=== PATIENT | female | born 1955 | race African-American/Black ===

== ENCOUNTER 2016-08-07 21:51 | Observation (INO) | payer MEDICARE ==
[~2016-08-07] VITALS: Ht 165.1 cm; Wt 126.0 kg
[~2016-08-07 21:51] MED LIST: CELE200 PO; ESOM0.1C PO; HYDR-2768 PO; LEXA20TA PO; MECL25 PO; METO100T9 PO; MOBI15TA PO; NORC7.5T PO; POTA-243 PO; ZOCO40TA PO
[2016-08-07 21:54] VITALS: BP 165/84; PULSE 65; RESP 16; TEMP 97.8; O2SAT 98
--- NOTE | 2016-08-07 22:02 | PD ---
Physical Exam Date Seen by Provider: Aug 07, 2016 Time Seen by Provider: 21:57 Narrative 61 YOBF C/O L ARM PAIN NO INJURY. PAIN IN UPPER ARM TO THE HAND. ALSO CHRONIC L KNEE PAIN. NO CP/SOB. VSS AWAITING BED PLACEMENT Data Data Last Documented VS Vital Signs Date Time Temp Pulse Resp B/P Pulse Ox O2 Delivery O2 Flow Rate FiO2 08/07/16 21:54 97.8 65 16 165/84 98 Room Air [facility] Medical Record Reviewed: Yes Supervised Visit with SONJA: Yes Raimundo Boucher Aug 07, 2016 22:02
[2016-08-08] MEDS ORDERED: HYDR25TA5 PO (00:04)
[2016-08-08] MEDS ORDERED: MECL-62 PO (00:04)
[2016-08-08] MEDS ORDERED: CELE200C PO (00:04)
[2016-08-08] MEDS ORDERED: ZOCO40TA PO (00:04)
[2016-08-08] MEDS ORDERED: LEXA20TA PO (00:04)
[2016-08-08] MEDS ORDERED: POTA10TA8 PO (00:04)
[2016-08-08] MEDS ORDERED: METO100T9 PO (00:04)
[2016-08-08] MEDS ORDERED: ASPIRIN 81 MG CHEW TAB PO ONE (00:30)
[2016-08-08] MEDS ORDERED: CYCLOBENZAPRINE HCL 10 MG TAB PO ONE (00:30)
[2016-08-08] MEDS ORDERED: SODIUM CHLORIDE 0.9% FLUSH 10 ML FLUSH IVF PRN (00:30)
[2016-08-08] MEDS ORDERED: KETOROLAC TROMETHAMINE 30 MG/ML (IVP) VIAL IV PUSH ONE (00:30)
[2016-08-08 01:13] LABS: AUTOMATED NEUTROPHIL # 5.7 TH/MM3 (1.8-7.7); BASOPHIL # 0.1 TH/MM3 (0-0.2); EOSINOPHIL # 0.4 TH/MM3 (0-0.4); HEMATOCRIT 35.4 % (35.0-46.0); LYMPH % 23.2 % (9.0-44.0); MEAN CELL VOLUME 77.5 FL (80.0-100.0); MEAN CORPUSCULAR HEMOGLOBIN 25.5 PG (27.0-34.0); MONO % 4.8 % (0.0-8.0); PLATELET COUNT 256 TH/MM3 (150-450); RED BLOOD COUNT 4.57 MIL/MM3 (4.00-5.30); RED CELL DISTRIBUTION WIDTH 14.6 % (11.6-17.2); WHITE BLOOD COUNT 8.7 TH/MM3 (4.0-11.0)
[2016-08-08 01:21] LABS: APTT (PATIENT) 27.1 SEC (24.3-30.1); HEMO FLAGS AUTO DIFF; PROTHROMBIN TIME - PATIENT 11.2 SEC (9.8-11.6)
[2016-08-08 01:40] LABS: ALT (GPT) 24 U/L (10-53); ANION GAP 9 MEQ/L (5-15); AST (GOT) 18 U/L (15-37); BICARBONATE 29.5 MEQ/L (21.0-32.0); BLOOD UREA NITROGEN 14 MG/DL (7-18); CHLORIDE 100 MEQ/L (98-107); GLOMERULAR FILTRATION RATE 74 ML/MIN (>89); POTASSIUM 4.1 MEQ/L (3.5-5.1); SODIUM (NA) 138 MEQ/L (136-145)
[2016-08-08 01:44] LABS: ALKALINE PHOSPHATASE 139 U/L (45-117); TOTAL BILIRUBIN ADULT 0.4 MG/DL (0.2-1.0)
--- NOTE | 2016-08-08 01:54 | RADRPT ---
EXAM DATE/TIME: 08/08/2016 01:05 [facility] COMPARISON: No previous studies available for comparison. INDICATIONS : Left arm pain. MEDICAL HISTORY : None. SURGICAL HISTORY : None. ENCOUNTER: Initial ACUITY: 1 day PAIN SCORE: 5/10 LOCATION: Left shoulder FINDINGS: Multiple view examination of the left shoulder demonstrates no evidence of fracture or dislocation. The glenohumeral and acromioclavicular joints are maintained. There is normal range of motion betwee n internal and external rotation. Bony mineralization is normal. CONCLUSION: Unremarkable examination of the left shoulder. Viraj Gonzales Jr., MD on August 08, 2016 at 1:52 Board Certified Radiologist. This report was verified electronically.
--- NOTE | 2016-08-08 01:54 | RADRPT ---
EXAM DATE/TIME: 08/08/2016 01:04 [facility] COMPARISON: No previous studies available for comparison. INDICATIONS : Chest pain. MEDICAL HISTORY : None. SURGICAL HISTORY : None. ENCOUNTER: Initial ACUITY: 1 day PAIN SCORE: 5/10 LOCATION: Bilateral chest FINDINGS: PA and lateral views of the chest demonstrate the lungs to be symmetrically aerated without evidence of mass, infiltrate or effusion. The cardiomediastinal contours are unremarkable. Osseous structure s are intact. CONCLUSION: No acute disease. Viraj Gonzales Jr., MD on August 08, 2016 at 1:52 Board Certified Radiologist. This report was verified electronically.
[2016-08-08 01:55] LABS: BANDS 1 % (0-6); EOSINOPHILS 8 % (0-4); METAMYELOCYTES 1 % (0-1); NEUTROPHIL # MANUAL DIFF 5.2 TH/MM3 (1.8-7.7); POLYS (SEG NEUTROPHILS) 58 % (16-70); SCAN/DIFF FINAL DIFF MANUAL; WBC DIFF SAMPLE 100
[2016-08-08 01:56] LABS: PLATELET ESTIMATE SMEAR NORMAL (NORMAL); PLATELET MORPHOLOGY NORMAL (NORMAL); TOXIC VACUOLATION PRESENT (NONE SEEN)
--- NOTE | 2016-08-08 02:40 | PD ---
HPI Chief Complaint: Pain: Acute or Chronic Time Seen by Provider: 00:04 Travel History International Travel<30 days: No Contact w/Intl Traveler<30days: No Traveled to known affect area: No History of Present Illness HPI Patient is a 61 year old female who comes in complaining of left sided chest pain radiating down her left arm. She says the pain is on the left side of her chest and in her shoulder. She reports a tingling sensation in her fingers. She says she was sitting at home when the pain started about an hour prior to arrival. She says she has had some SOB and some nausea. She denies any vomiting. PFSH Past Medical History Arthritis: Yes Asthma: No Autoimmune Disease: No Blood Disorders: No Anxiety: Yes Depression: Yes Heart Rhythm Problems: No Cancer: No Cardiovascular Problems: Yes (HTN) High Cholesterol: Yes Chemotherapy: No Chest Pain: No Congestive Heart Failure: No COPD: No Diabetes: No Endocrine: No GERD: Yes Genitourinary: No Hepatitis: No Hiatal Hernia: No Hypertension: Yes Immune Disorder: No Musculoskeletal: Yes (arthritis) Neurologic: No Psychiatric: Yes (DEPRESSION AND ANXIETY) Reproductive: Yes Respiratory: Yes (sleep apnea uses c-pap) Immunizations Current: Yes Radiation Therapy: No Sleep Apnea: Yes Thyroid Disease: No ?: Not Past Surgical History Abdominal Surgery: No Cardiac Surgery: No Ear Surgery: No Endocrine Surgery: No Eye Surgery: No Genitourinary Surgery: No Gynecologic Surgery: Yes (D & C) Hysterectomy: Yes Joint Replacement: Yes (left knee) Oral Surgery: No Thoracic Surgery: No Other Surgery: Yes Social History Alcohol Use: Yes (BEER DAILY) Tobacco Use: No Substance Use: No Allergies-Medications (Allergen,Severity, Reaction): Coded Allergies: Contrast Media (Verified Allergy, Severe, SWELLING, 08/07/16) Penicillamine (Verified Allergy, Severe, SWEELING, 08/07/16) Penicillin (Verified Allergy, Severe, SWELLING, 08/07/16) Shellfish (Verified Allergy, Severe, HIVES, SWELLING, 08/07/16) Reported Meds & Prescriptions Reported Meds & Active Scripts Active Reported Zocor (Simvastatin) 40 Mg Tab 40 Mg PO DAILY Potassium Chloride CR (Potassium Chloride) 10 Meq Tab 10 Meq PO DAILY Metoprolol Succinate ER 24 HR (Metoprolol Succinate) 100 Mg Tab 100 Mg PO DAILY Meclizine (Meclizine HCl) 25 Mg Tab 25 Mg PO DIRECTED PRN Hydrochlorothiazide 25 Mg Tab 25 Mg PO DAILY Lexapro (Escitalopram Oxalate) 20 Mg Tab 20 Mg PO DAILY Celebrex (Celecoxib) 200 Mg Cap 200 Mg PO BID Review of Systems Except as stated in HPI: all other systems reviewed are Neg General / Constitutional: No: Fever, Chills HENT: No: Headaches, Lightheadedness Cardiovascular: Positive: Chest Pain or Discomfort Respiratory: Positive: Shortness of Breath Gastrointestinal: No: Vomiting, Abdominal Pain Musculoskeletal: Positive: Pain, No: Edema Skin: No Rash, No Change in Pigmentation Physical Exam Narrative GENERAL: Awake and alert, in no acute distress. SKIN: Focused skin assessment warm/dry. HEAD: Atraumatic. Normocephalic. EYES: Pupils equal and round. No scleral icterus. ENT: Mucous membranes pink and moist. NECK: Trachea midline. No JVD. CARDIOVASCULAR: Regular rate and rhythm. No murmur appreciated. Chest wall tenderness to palpation. RESPIRATORY: No accessory muscle use. Clear to auscultation. Breath sounds equal bilaterally. GASTROINTESTINAL: Abdomen soft, non-tender, nondistended. MUSCULOSKELETAL: No obvious deformities. No clubbing. No cyanosis. No edema. Pain with movement of her left shoulder. Radial pulse intact. NEUROLOGICAL: Awake and alert. No obvious cranial nerve deficits. Motor grossly within normal limits. Normal speech. PSYCHIATRIC: Appropriate mood and affect; insight and judgment normal. Data Data Last Documented VS Vital Signs Date Time Temp Pulse Resp B/P Pulse Ox O2 Delivery O2 Flow Rate FiO2 08/08/16 00:04 57 20 08/07/16 21:54 97.8 165/84 98 Room Air Orders Electrocardiogram (08/07/16 22:02) Complete Blood Count With Diff (08/08/16 00:27) Comprehensive Metabolic Panel (08/08/16 00:27) Prothrombin Time / Inr (Pt) (08/08/16 00:27) Act Partial Throm Time (Ptt) (08/08/16 00:27) Troponin I (08/08/16:27) Ecg Monitoring (08/08/16 00:27) Bilateral Bp Monitoring (08/08/16 00:27) Iv Access Insert/Monitor (08/08/16:) Oximetry (08/08/16 00:27) Aspirin Chew (Aspirin Chew) (08/08/16 00:30) Sodium Chloride 0.9% Flush (Ns Flush) (08/08/16 00:30) Chest, Pa & Lat (08/08/16 00:27) Shoulder, Complete (>2vws) (08/08/16 ) Ketorolac Inj (Toradol Inj) (08/08/16 00:30) Cyclobenzaprine (Flexeril) (08/08/16 00:30) Activity Bed Rest With Brp (08/08/16 02:57) Vital Signs (Adult) Q4H (08/08/16 02:57) Cardiac Rhythm .As Directed (08/08/16 02:57) ^ Notify Dr: Other .PRN (08/08/16 02:57) ^ Notify Dr. Parameters (08/08/16 02:57) Resp Oxygen Nasal Cannula (08/08/16 ) Diet Heart Healthy (08/08/16 Breakfast) Ckmb (Isoenzyme) Profile (08/08/16 03:55) Ckmb (Isoenzyme) Profile (08/08/16 06:55) Troponin I (08/08/16 03:55) Troponin I (08/08/16 06:55) Electrocardiogram (08/08/16 03:55) Electrocardiogram (08/08/16 06:55) ^ Obtain (08/08/16 02:57) Sodium Chloride 0.9% Flush (Ns Flush) (08/08/16 03:00) Sodium Chloride 0.9% Flush (Ns Flush) (08/08/16 09:00) Acetaminophen (Tylenol) (08/08/16 03:00) Acetamin-Hydrocod 325-7.5 Mg ([place] 7.5 (08/08/16 03:00) Ondansetron Inj (Zofran Inj) (08/08/16 03:00) Third Shift Lieutenant / Telemetry [id number] (08/08/16 02:57) Admit Order (Ed Use Only) (08/08/16 ) Morphine Inj (Morphine Inj) (08/08/16 03:00) CKMB (08/08/16 04:55) CKMB% (08/08/16 04:55) Labs Laboratory Tests Test 08/08/16 00:55 White Blood Count 8.7 TH/MM3 Red Blood Count 4.57 MIL/MM3 Hemoglobin 11.7 GM/DL Hematocrit 35.4 % Mean Corpuscular Volume 77.5 FL Mean Corpuscular Hemoglobin 25.5 PG Mean Corpuscular Hemoglobin 33.0 % Concent Red Cell Distribution Width 14.6 % Platelet Count 256 TH/MM3 Mean Platelet Volume 9.5 FL Neutrophils (%) (Auto) 66.0 % Lymphocytes (%) (Auto) 23.2 % Monocytes (%) (Auto) 4.8 % Eosinophils (%) (Auto) 5.0 % Basophils (%) (Auto) 1.0 % Neutrophils # (Auto) 5.7 TH/MM3 Lymphocytes # (Auto) 2.0 TH/MM3 Monocytes # (Auto) 0.4 TH/MM3 Eosinophils # (Auto) 0.4 TH/MM3 Basophils # (Auto) 0.1 TH/MM3 CBC Comment AUTO DIFF Differential Total Cells 100 Counted Neutrophils % (Manual) 58 % Band Neutrophils % 1 % Lymphocytes % 28 % Monocytes % 4 % Eosinophils % 8 % Neutrophils # (Manual) 5.2 TH/MM3 Metamyelocytes 1 % Differential Comment FINAL DIFF MANUAL Atypical Lymphocytes % Toxic Vacuolation PRESENT Platelet Estimate NORMAL Platelet Morphology Comment NORMAL Red Cell Morphology Comment NORMAL Prothrombin Time 11.2 SEC Prothromb Time International 1.0 RATIO Ratio Activated Partial 27.1 SEC Thromboplast Time Sodium Level 138 MEQ/L Potassium Level 4.1 MEQ/L Chloride Level 100 MEQ/L Carbon Dioxide Level 29.5 MEQ/L Anion Gap 9 MEQ/L Blood Urea Nitrogen 14 MG/DL Creatinine 0.94 MG/DL Estimat Glomerular Filtration 74 ML/MIN Rate Random Glucose 127 MG/DL Calcium Level 9.4 MG/DL Total Bilirubin 0.4 MG/DL Aspartate Amino Transf 18 U/L (AST/SGOT) Alanine Aminotransferase 24 U/L (ALT/SGPT) Alkaline Phosphatase 139 U/L Troponin I LESS THAN 0.02 NG/ML Total Protein 7.8 GM/DL Albumin 3.4 GM/DL [facility] Medical Decision Making Medical Screen Exam Complete: Yes Emergency Medical Condition: Yes Medical Record Reviewed: Yes Interpretation(s) ECG shows NSR, no ST elevation or depression Differential Diagnosis Musculoskeletal pain versus ACS versus NSTEMI versus STEMI Narrative Course Patient is a 61-year-old female comes in complaining of chest pain radiating down her left arm. Exam shows pain with movement of her left arm. IV established, labs sent. Patient connected to endocrinology specialist. Given pain medicine. Labs show no acute abnormalities. Chest x-ray and shoulder x-ray show no acute abnormalities. Given aspirin. Based on patient's history as well as continued chest pain, we will place in chest pain center for further management. Diagnosis Primary Impression: Chest pain Qualified Code: R07.9 - Chest pain, unspecified type Admitting Information Admitting Physician Requests: Observation Condition: Stable Catrachita Glynn MD Aug 08, 2016 02:40
[2016-08-08] MEDS ORDERED: ONDANSETRON HCL 4 MG/2 ML VIAL IV PRN (03:00)
[2016-08-08] MEDS ORDERED: ACETAMINOPHEN 500 MG CPLT PO PRN (03:00)
[2016-08-08] MEDS ORDERED: ACETAMINOPHEN/HYDROcodone 325 MG/7.5 MG TAB PO PRN (03:00)
[2016-08-08] MEDS ORDERED: MORPHINE SULFATE 4 MG/ML INJ IV PUSH ONE (03:00)
[2016-08-08] MEDS ORDERED: SODIUM CHLORIDE 0.9% FLUSH 10 ML FLUSH IV FLUSH PRN (03:00)
[2016-08-08 04:40] VITALS: BP 151/67; PULSE 58; PULSE 87; RESP 18; O2SAT 98
[2016-08-08 05:48] LABS: CREATINE KINASE 116 U/L (26-192)
[2016-08-08 05:58] VITALS: BP 137/61; PULSE 59; RESP 18; TEMP 97.6; O2SAT 96
[2016-08-08 07:18] VITALS: BP 136/75; PULSE 55; RESP 18; TEMP 97.6; O2SAT 91
[2016-08-08] MEDS ORDERED: KETOROLAC TROMETHAMINE 30 MG/ML (IVP) VIAL IVP ONE (08:15)
[2016-08-08 08:30] LABS: CREATINE KINASE 114 U/L (26-192)
[2016-08-08 08:42] LABS: CKMB 0.9 NG/ML (0.5-3.6)
[2016-08-08] MEDS ORDERED: SODIUM CHLORIDE 0.9% FLUSH 10 ML FLUSH IV FLUSH SCH (09:00)
--- NOTE | 2016-08-08 09:06 | EKG ---
Date Performed: 08/08/2016 Time Performed: 05:02:56 PTAGE: 61 years EKG: SINUS BRADYCARDIA WITH FIRST DEGREE AV BLOCK ABNORMAL ECG PREVIOUS TRACING : 08/07/2016 22.13 DOCTOR: Siddhartha Morris Interpretating Date/Time 08/08/2016 09:05:28
[2016-08-08 09:15] VITALS: PULSE 52
--- NOTE | 2016-08-08 09:15 | EKG ---
Date Performed: 08/07/2016 Time Performed: 22:13:08 PTAGE: 61 years EKG: Sinus rhythm NORMAL ECG PREVIOUS TRACING : 01/29/2014 11.01 DOCTOR: Siddhartha Morris Interpretating Date/Time 08/08/2016 09:13:34
--- NOTE | 2016-08-08 09:33 | HHI.HP ---
[facility] Primary Care Physician Rylan Weaver M.D. Chief Complaint Left arm and left-sided chest pain History of Present Illness This is a 61-year-old female that presents to ED complaining of a left arm discomfort. She states her so bad that she can barely move it. Denies trauma. Also is complaining of left lateral chest pain. It seems to her to be 2 different discomforts. They have both been there constantly for 3 days. She initially cannot recall anything that may have occurred to create a discomfort but now she remembers she was helping her flip her mattress little prior to this discomfort beginning. The discomforts are worsened with even the smallest amount of movement. Hurts to press on the area. Denies shortness breath nausea or diaphoresis. Denies history of CAD. Denies recent illnesses. Review of Systems General: Patient denies fevers, chills recent, and recent travel HEENT: Patient denies headache, sore throat, difficulty swallowing. Cardiovascular: Has the chest discomfort as mentioned above. Denies sensation of heart beating rapidly or irregularly. No syncope. Denies diaphoresis. Respiratory: Denies shortness of breath or inspirational chest discomfort. Denies coughing wheezing or hemoptysis. GI: Patient denies nausea, vomiting, diarrhea, abdominal pain, bloody stools. Musculoskeletal: Patient denies joint pain or edema. Denies calf pain or edema. Neurovascular: Patient denies numbness, tingling, weakness in extremities. Denies headache. Endocrine: Denies polyuria and polydipsia. Hematologic: Denies easy bruising. Skin: Denies rash or itching. Past Family Social History Allergies: Coded Allergies: Contrast Media (Verified Allergy, Severe, SWELLING, 08/07/16) Penicillamine (Verified Allergy, Severe, SWEELING, 08/07/16) Penicillin (Verified Allergy, Severe, SWELLING, 08/07/16) Shellfish (Verified Allergy, Severe, HIVES, SWELLING, 08/07/16) Past Medical History Hypertension, hyperlipidemia, obesity. Denies diabetes and coronary artery disease. Past Surgical History Left knee. D&C. Reported Medications Reported Meds & Active Scripts Active Reported Zocor (Simvastatin) 40 Mg Tab 40 Mg PO DAILY Potassium Chloride CR (Potassium Chloride) 10 Meq Tab 10 Meq PO DAILY Metoprolol Succinate ER 24 HR (Metoprolol Succinate) 100 Mg Tab 100 Mg PO DAILY Meclizine (Meclizine HCl) 25 Mg Tab 25 Mg PO DIRECTED PRN Hydrochlorothiazide 25 Mg Tab 25 Mg PO DAILY Lexapro (Escitalopram Oxalate) 20 Mg Tab 20 Mg PO DAILY Celebrex (Celecoxib) 200 Mg Cap 200 Mg PO BID Active Ordered Medications Current Medications Medications (Trade) Dose Ordered Sig/Allen Route Start Time Stop Time Status Last Admin (NS Flush) 2 ml UNSCH PRN IVF 08/08/16 00:30 (NS Flush) 2 ml UNSCH PRN IV FLUSH 08/08/16 03:00 (NS Flush) 2 ml BID IV FLUSH 08/08/16 09:00 08/08/16 08:52 (Tylenol) 500 mg Q4H PRN PO 08/08/16 03:00 ([place] 7.5-325 Mg) 1 tab Q4H PRN PO 08/08/16 03:00 (Zofran Inj) 4 mg Q6H PRN IV 08/08/16 03:00 Family History Denies family history of CAD. Social History Denies tobacco abuse and denies illicit drug use. Has occasional beer. Physical Exam Vital Signs Vital Signs Date Time Temp Pulse Resp B/P Pulse Ox O2 Delivery O2 Flow Rate FiO2 08/08/16 07:18 97.6 55 18 136/75 91 08/08/16 05:58 97.6 59 18 137/61 96 08/08/16 04:40 58 18 151/67 98 Room Air 08/08/16 00:04 57 20 08/07/16 21:54 97.8 65 16 165/84 98 Room Air Physical Exam GENERAL: This is a well-nourished, well-developed patient, in no apparent distress. Patient speaks in clear complete sentences. Patient is pleasant. HEENT: Head is atraumatic and normocephalic. Neck is supple without lymphadenopathy and trachea is midline. No JVD or carotid bruits. CARDIOVASCULAR: Regular rate and rhythm without murmurs, gallops, or rubs. RESPIRATORY: Left chest wall is extremely tender to palpate even with light pressure. The discomfort is more so on the lateral aspect. Slight movement of her left arm worsens the discomfort in the arm as well as in the left lateral chest wall. Clear to auscultation. Breath sounds equal bilaterally. No wheezes , rales, or rhonchi. No use of accessory muscles. GASTROINTESTINAL: Abdomen is nontender, nondistended. Abdomen soft. No obvious pulsatile mass or bruit. No CVA tenderness. Strong femoral pulses bilaterally. Normal bowel sounds in all quadrants. MUSCULOSKELETAL: There is tenderness on palpating the glenohumeral region of her left shoulder. Has limited abduction, abduction, and external rotation. Strong radial and ulnar pulses bilaterally. Strong sheet combining operator strength bilaterally. Patient is lower extremities freely. No calf tenderness or edema, no Homans sign. Strong pulses in upper and lower extremities. NEUROLOGICAL: Patient is alert and oriented. Cranial nerves 2-12 are grossly intact. No focal deficits and speech is clear. Strong sheet combining operator strength bilaterally. SKIN: No rash and turgor is normal. Laboratory Laboratory Tests Test 08/08/16 08/08/16 08/08/16 00:55 04:55 07:10 White Blood Count 8.7 Red Blood Count 4.57 Hemoglobin 11.7 Hematocrit 35.4 Mean Corpuscular Volume 77.5 Mean Corpuscular Hemoglobin 25.5 Mean Corpuscular Hemoglobin 33.0 Concent Red Cell Distribution Width 14.6 Platelet Count 256 Mean Platelet Volume 9.5 Neutrophils (%) (Auto) 66.0 Lymphocytes (%) (Auto) 23.2 Monocytes (%) (Auto) 4.8 Eosinophils (%) (Auto) 5.0 Basophils (%) (Auto) 1.0 Neutrophils # (Auto) 5.7 Lymphocytes # (Auto) 2.0 Monocytes # (Auto) 0.4 Eosinophils # (Auto) 0.4 Basophils # (Auto) 0.1 CBC Comment AUTO DIFF Differential Total Cells 100 Counted Neutrophils % (Manual) 58 Band Neutrophils % 1 Lymphocytes % 28 Monocytes % 4 Eosinophils % 8 Neutrophils # (Manual) 5.2 Metamyelocytes 1 Differential Comment FINAL DIFF MANUAL Atypical Lymphocytes Toxic Vacuolation PRESENT Platelet Estimate NORMAL Platelet Morphology Comment NORMAL Red Cell Morphology Comment NORMAL Prothrombin Time 11.2 Prothromb Time International 1.0 Ratio Activated Partial 27.1 Thromboplast Time Sodium Level 138 Potassium Level 4.1 Chloride Level 100 Carbon Dioxide Level 29.5 Anion Gap 9 Blood Urea Nitrogen 14 Creatinine 0.94 Estimat Glomerular Filtration 74 Rate Random Glucose 127 Calcium Level 9.4 Total Bilirubin 0.4 Aspartate Amino Transf 18 (AST/SGOT) Alanine Aminotransferase 24 (ALT/SGPT) Alkaline Phosphatase 139 Troponin I LESS THAN 0.02 LESS THAN 0.02 LESS THAN 0.02 Total Protein 7.8 Albumin 3.4 Total Creatine Kinase 116 114 Creatine Kinase MB 1.0 0.9 Result Diagram: 08/08/16 0055 08/08/16 0055 Imaging Last 48 hours Impressions Chest X-Ray 08/08/16 0027 Signed Impressions: Service Date/Time: Monday, August 08, 2016 01:04 - CONCLUSION: No acute disease. Viraj Gonzales Jr., MD Shoulder X-Ray 08/08/16 0000 Signed Impressions: Service Date/Time: Monday, August 08, 2016 01:05 - CONCLUSION: Unremarkable examination of the left shoulder. Viraj Gonzales Jr., MD Course EKGs have sinus rhythm without significant ST segment depressions or elevations. Assessment and Plan Assessment and Plan * Atypical chest pain: Patient had serial cardiac enzymes and EKGs for ruling out purposes and was seen by Dr. Brenton Bauer of cardiology in the chest pain center. Her discomfort is not cardiac related. His musculoskeletal nature. We will get an MRI of her left shoulder and have her follow-up with orthopedist on outpatient basis. * Left shoulder pain: We'll get an MRI of the shoulder and have her follow-up with an orthopedist. * Hypertension: Continue current medication. * Hyperlipidemia: Continue current medication. * Obesity: Patient has been counseled on importance of diet, exercise, and weight loss. Patient is stable at this time. She is agreeable to this plan. Melquiades Cast Aug 08, 2016 09:33
[2016-08-08] MEDS ORDERED: HYDROCHLOROTHIAZIDE 25 MG TAB PO SCH (09:45)
[2016-08-08] MEDS ORDERED: ESCITALOPRAM OXALATE 20 MG TAB PO SCH (09:45)
[2016-08-08] MEDS ORDERED: POTASSIUM CHLORIDE 10 MEQ CONTROLLED RELEASE TAB PO SCH (09:45)
[2016-08-08] MEDS ORDERED: PRAVASTATIN SOD 80 MG TAB PO SCH (10:30)
[2016-08-08] MEDS ORDERED: METOPROLOL SUCCINATE 50 MG EXTENDED RELEASE TAB PO SCH (10:30)
[2016-08-08] MEDS ORDERED: FAMOTIDINE 20 MG TAB PO ONE (11:00)
[2016-08-08 11:17] VITALS: BP 129/60; PULSE 57; RESP 18; TEMP 97.6; O2SAT 97
--- NOTE | 2016-08-08 13:56 | RADRPT ---
EXAM DATE/TIME: 08/08/2016 09:25 [facility] COMPARISON: SHOULDER LEFT COMPLETE (>2VWS), August 08, 2016, 1:05. INDICATIONS : Left shoulder and arm pain. MEDICAL HISTORY : Arthritis. Hypertension. SURGICAL HISTORY : Total knee replacement, left. ENCOUNTER: Initial ACUITY: 2 day PAIN SCORE: 5/10 LOCATION: Left shoulder TECHNIQUE: Multiplanar, multisequence MRI examination was performed without contrast. FINDINGS: ROTATOR CUFF: There is a complete tear of the distal supraspinatus tendon encompassing what appears to be entire wi dth of the tendon. There is a roughly 16 mm gap between the frayed edge of the tendon and the distal insertion. There is no evidence of muscular injury or atrophy. The other cuff tendons appear intact. LABRUM: Labrum is within normal limits. MARROW/CARTILAGE: There is mild degenerative change involving the glenohumeral joint and the acromioclavicular joint. OTHER: Is minimal lateral downsloping of the distal acromion without significant spurring. Minimal joint flu id in bursal fluid. No evidence of periarticular mass or collection. CONCLUSION: Full-thickness distal supraspinatus tear Chinedu Em MD on August 08, 2016 at 13:43 Board Certified Radiologist. This report was verified electronically.
--- NOTE | 2016-08-08 14:03 | HHI.DCPOC ---
Discharge Care Plan Diagnosis: (1) Chest pain, atypical (2) Hypertension (3) Hyperlipidemia (4) Supraspinatus tendon tear Goals to Promote Your Health * To prevent worsening of your condition and complications * To maintain your health at the optimal level Directions to Meet Your Goals Take your medications as prescribed Follow your dietary instruction Follow activity as directed Keep your appointments as scheduled Take your immunizations and boosters as scheduled If your symptoms worsen call your PCP, if no PCP go to Urgent Care Center or Emergency Room Smoking is Dangerous to Your Health. Avoid second hand smoke Call the 24-hour hour crisis hotline for domestic abuse at Melquiades Cast Aug 08, 2016 14:03
--- NOTE | 2016-08-09 13:47 | EKG ---
Date Performed: 08/08/2016 Time Performed: 07:29:45 PTAGE: 61 years EKG: SINUS BRADYCARDIA WITH FIRST DEGREE AV BLOCK ABNORMAL ECG PREVIOUS TRACING : 08/08/2016 05.02 Since previous tracing, no significant change noted DOCTOR: Brenton Bauer Interpretating Date/Time 08/09/2016 13:46:12
== END 2016-08-08 17:00 | disposition home or self-care (01) ==
LOC: NEPC 21:51 → NEDA 08-08 03:00 → NEPHCDU 08-08 05:55
PROVIDERS: ADMIT Internal Medicine Interventional Cardiology; ATTEND Internal Medicine Interventional Cardiology
DX: R07.89 Other chest pain (principal); R06.02 Shortness of breath; F41.9 Anxiety disorder, unspecified; F32.9 Major depressive disorder, single episode, unspecified; M75.122 Complete rotator cuff tear or rupture of left shoulder, not specified as traumatic; I10 Essential (primary) hypertension; E78.00 Pure hypercholesterolemia, unspecified; E78.5 Hyperlipidemia, unspecified; E66.9 Obesity, unspecified; K21.9 Gastro-esophageal reflux disease without esophagitis; G47.30 Sleep apnea, unspecified; Z68.42 Body mass index [BMI] 45.0-49.9, adult; Z99.81 Dependence on supplemental oxygen; Z88.8 Allergy status to other drugs, medicaments and biological substances; Z91.041 Radiographic dye allergy status; Z88.0 Allergy status to penicillin; Z91.013 Allergy to seafood; Z96.652 Presence of left artificial knee joint
CPT/HCPCS: 71020; 73030; 73221; 80053; 82550; 82552; 84484; 85007; 85027; 85610; 85730; 93005; 96374; 99285; G0378; J1885; J2270

== ENCOUNTER 2016-08-28 21:24 | Emergency (ER) | payer MEDICARE ==
[~2016-08-28] VITALS: Ht 167.6 cm; Wt 99.0 kg
[~2016-08-28 21:24] MED LIST changes: -CELE200 PO; +CELE200C PO; -ESOM0.1C PO; -HYDR-2768 PO; +HYDR25TA5 PO; +MECL-62 PO; -MECL25 PO; -MOBI15TA PO; -NORC7.5T PO; -POTA-243 PO; +POTA10TA8 PO
[2016-08-28 21:27] VITALS: BP 167/79; PULSE 70; RESP 20; TEMP 97.6; O2SAT 98
--- NOTE | 2016-08-28 22:13 | PD ---
HPI Chief Complaint: Injury Time Seen by Provider: 22:11 Travel History International Travel<30 days: No Contact w/Intl Traveler<30days: No Traveled to known affect area: No History of Present Illness HPI 61-year-old [id number] black female presents with complaints of right hand pain after a fall a few days ago. She states that she fell striking her hand on the coffee table breaking it. Since then she's had pain across the third, fourth, fifth metacarpals. No other injuries. She denies any numbness or tingling. No weakness. Pain is moderate. Worse with movement. No alleviating factors. PFSH Past Medical History Arthritis: Yes Asthma: No Autoimmune Disease: No Blood Disorders: No Anxiety: Yes Depression: Yes Heart Rhythm Problems: No Cancer: No Cardiac Catheterization: No Cardiovascular Problems: Yes High Cholesterol: Yes Chemotherapy: No Chest Pain: No Congestive Heart Failure: No COPD: No Diabetes: No Endocrine: No GERD: Yes Genitourinary: No Hepatitis: No Hiatal Hernia: No Hypertension: Yes Immune Disorder: No Musculoskeletal: Yes (arthritis) Neurologic: No Psychiatric: Yes (DEPRESSION AND ANXIETY) Reproductive: Yes Respiratory: Yes (sleep apnea uses c-pap) Immunizations Current: Yes Radiation Therapy: No Sleep Apnea: Yes Thyroid Disease: No Past Surgical History Abdominal Surgery: No Cardiac Surgery: No Coronary Artery Bypass Graft: No Ear Surgery: No Endocrine Surgery: No Eye Surgery: No Genitourinary Surgery: No Gynecologic Surgery: Yes (D & C) Hysterectomy: Yes Joint Replacement: Yes (left knee) Oral Surgery: No Thoracic Surgery: No Other Surgery: Yes Social History Alcohol Use: Yes (BEER DAILY) Tobacco Use: No Substance Use: No Allergies-Medications (Allergen,Severity, Reaction): Coded Allergies: Contrast Media (Verified Allergy, Severe, SWELLING, 08/28/16) Penicillamine (Verified Allergy, Severe, SWEELING, 08/28/16) Penicillin (Verified Allergy, Severe, SWELLING, 08/28/16) Shellfish (Verified Allergy, Severe, HIVES, SWELLING, 08/28/16) Reported Meds & Prescriptions Reported Meds & Active Scripts Active Reported Zocor (Simvastatin) 40 Mg Tab 40 Mg PO DAILY Potassium Chloride CR (Potassium Chloride) 10 Meq Tab 10 Meq PO DAILY Metoprolol Succinate ER 24 HR (Metoprolol Succinate) 100 Mg Tab 100 Mg PO DAILY Meclizine (Meclizine HCl) 25 Mg Tab 25 Mg PO DIRECTED PRN Hydrochlorothiazide 25 Mg Tab 25 Mg PO DAILY Lexapro (Escitalopram Oxalate) 20 Mg Tab 20 Mg PO DAILY Celebrex (Celecoxib) 200 Mg Cap 200 Mg PO BID Review of Systems Except as stated in HPI: all other systems reviewed are Neg Physical Exam Narrative GENERAL: This is a well-nourished, well-developed patient, in no apparent distress. SKIN: No rashes, ecchymoses or lesions. Warm and dry. HEAD: Atraumatic. Normocephalic. EYES: PERRL, EOMI, no discharge or injection. No scleral icterus. EARS: Clear NOSE: Nasal turbinates appear normal. THROAT: Mucosa pink and moist. Airway patent. NECK: Trachea midline. supple, moves head freely. LUNGS: Clear to auscultation. CV: Regular in rhythm. ABDOMEN: Soft nontender. EXT: No clubbing cyanosis or edema. Patient has tenderness along the third, fourth, fifth metacarpals of the right hand. The skin is intact. No erythema or warmth. No sensory changes. She is able to extend and flex her fingers freely. No pain in the wrist, elbow or shoulder. Remaining extremities are unremarkable. Data Data Last Documented VS Vital Signs Date Time Temp Pulse Resp B/P Pulse Ox O2 Delivery O2 Flow Rate FiO2 08/28/16 21:27 97.6 70 20 167/79 98 Orders Hand, Complete ([id number]) (08/28/16 22:10) Ice/Cold Pack (08/28/16 22:10) Naproxen (Naprosyn) (08/28/16 23:00) [facility] Medical Decision Making Medical Screen Exam Complete: Yes Emergency Medical Condition: Yes Medical Record Reviewed: Yes Interpretation(s) Right hand: Negative for acute bony injury. Differential Diagnosis MDM: High Differential diagnoses: Fracture, sprain, strain, dislocation, contusion, neurovascular injury Narrative Course Patient's given ice pack. X-ray of the right hand is negative for acute bony injury. Patient's given Naprosyn 500 mg by mouth. She states that she is not taking meloxicam or any anti-inflammatories at this time. This is right hand contusion Diagnosis Primary Impression: Contusion of right hand Patient Instructions: General Instructions Departure Forms: Tests/Procedures, Work Release Special Instructions: No use the right hand at work 5 days. Additional Instructions: Rest. Elevation. Ice for any acute swelling and pain. Diclofenac. Recheck with your doctor in 1 week. Return to the ER for emergencies. Med/Other Pt SpecificInfo: Prescription(s) given Scripts Diclofenac Sodium DR 75 Mg Tabdr75 Mg PO BID #20 TAB Prov:Kin Smith MD 08/28/16 Disposition: 01 DISCHARGE HOME Condition: Stable Raimundo Boucher Aug 28, 2016 22:13
--- NOTE | 2016-08-28 22:44 | RADRPT ---
EXAM DATE/TIME: 08/28/2016 22:39 [facility] COMPARISON: No previous studies available for comparison. INDICATIONS : Right hand pain after falling three days ago. MEDICAL HISTORY : None. SURGICAL HISTORY : None. ENCOUNTER: Initial ACUITY: 3 days PAIN SCORE: 10/10 LOCATION: Right MCPJ. FINDINGS: Three view examination of the right hand demonstrates no soft tissue swelling, dislocation, or fractu re. The carpal bones appear intact. The interphalangeal and metacarpophalangeal joints are intact. Bony mineralization is normal. CONCLUSION: No acute fracture. Bay Roblero MD on August 28, 2016 at 22:42 Board Certified Radiologist. This report was verified electronically.
[2016-08-28] MEDS ORDERED: DICL75TA PO (22:47)
[2016-08-28] MEDS ORDERED: NAPROXEN 500 MG TAB PO ONE (23:00)
== END 2016-08-28 23:10 | disposition home or self-care (01) ==
LOC: NEPK 21:24
DX: S60.221A Contusion of right hand, initial encounter (principal); W19.XXXA Unspecified fall, initial encounter
CPT/HCPCS: 73130; 99283

== ENCOUNTER 2016-09-17 17:19 | Emergency (ER) | payer MEDICARE ==
[~2016-09-17] VITALS: Ht 175.3 cm; Wt 130.0 kg
[~2016-09-17 17:19] MED LIST changes: +DICL75TA PO
[2016-09-17 17:53] VITALS: BP 157/73; PULSE 69; RESP 18; TEMP 98; O2SAT 99
--- NOTE | 2016-09-17 18:20 | PD ---
HPI Chief Complaint: Pain: Acute or Chronic Time Seen by Provider: 18:20 Travel History International Travel<30 days: No Contact w/Intl Traveler<30days: No Traveled to known affect area: No History of Present Illness HPI 61-year-old female presents to the emergency department via [facility] with complaint of right leg pain 2 days. She said 3 days ago she was walking in the mall and then yesterday had excruciating leg pain. She said she was able to walk on her leg yesterday but today she cannot bear any weight. Denies trauma. Denies paresthesias, loss of sensation to the affected extremity. Reports decreased range of motion and strength secondary to pain. Reports pain being from the knee down. Denies hip pain. Denies history of DVT. Denies anticoagulants. Denies leg edema. Denies fever, vomiting. Patient denies low back pain. Has not taken any medications or tried any treatments to alleviate her symptoms. Has no other medical complaints. Allergies to contrast media, penicillin, shellfish. No other modifying factors or associated signs and symptoms. PFSH Past Medical History Arthritis: Yes Asthma: No Autoimmune Disease: No Blood Disorders: No Anxiety: Yes Depression: Yes Heart Rhythm Problems: No Cancer: No Cardiac Catheterization: No Cardiovascular Problems: Yes High Cholesterol: Yes Chemotherapy: No Chest Pain: No Congestive Heart Failure: No COPD: No Diabetes: No Diminished Hearing: No Endocrine: No GERD: Yes Genitourinary: No Hepatitis: No Hiatal Hernia: No Hypertension: Yes Immune Disorder: No Musculoskeletal: Yes (arthritis) Neurologic: No Psychiatric: Yes (DEPRESSION AND ANXIETY) Reproductive: Yes Respiratory: Yes (sleep apnea uses c-pap) Immunizations Current: Yes Radiation Therapy: No Sleep Apnea: Yes Thyroid Disease: No Past Surgical History Abdominal Surgery: No Cardiac Surgery: No Coronary Artery Bypass Graft: No Ear Surgery: No Endocrine Surgery: No Eye Surgery: No Genitourinary Surgery: No Gynecologic Surgery: Yes (D & C) Hysterectomy: Yes Joint Replacement: Yes (left knee) Oral Surgery: No Thoracic Surgery: No Other Surgery: Yes Social History Alcohol Use: Yes (BEER DAILY) Tobacco Use: No Substance Use: No Allergies-Medications (Allergen,Severity, Reaction): Coded Allergies: Contrast Media (Verified Allergy, Severe, SWELLING, 09/17/16) Penicillamine (Verified Allergy, Severe, SWEELING, 09/17/16) Penicillin (Verified Allergy, Severe, SWELLING, 09/17/16) Shellfish (Verified Allergy, Severe, HIVES, SWELLING, 09/17/16) Reported Meds & Prescriptions Reported Meds & Active Scripts Active Reported Zocor (Simvastatin) 40 Mg Tab 40 Mg PO DAILY Potassium Chloride CR (Potassium Chloride) 10 Meq Tab 10 Meq PO DAILY Metoprolol Succinate ER 24 HR (Metoprolol Succinate) 100 Mg Tab 100 Mg PO DAILY Meclizine (Meclizine HCl) 25 Mg Tab 25 Mg PO DIRECTED PRN Hydrochlorothiazide 25 Mg Tab 25 Mg PO DAILY Lexapro (Escitalopram Oxalate) 20 Mg Tab 20 Mg PO DAILY Celebrex (Celecoxib) 200 Mg Cap 200 Mg PO BID Review of Systems Except as stated in HPI: all other systems reviewed are Neg Physical Exam Narrative GENERAL: Well-nourished, well-developed female patient, in no acute distress SKIN: Warm and dry. HEAD: Atraumatic. Normocephalic. EYES: Pupils equal and round. No scleral icterus. No injection or drainage. ENT: Mucosa pink and moist. Airway patent. NECK: Trachea midline. CARDIOVASCULAR: Regular rate and rhythm. RESPIRATORY: No accessory muscle use. GASTROINTESTINAL: Obese. MUSCULOSKELETAL: Right lower extremity with tenderness on palpation behind the knee and to the upper calf; patient unable to perform range of motion; patient refuses to perform passive range of motion; no tenderness on palpation to the right hip; no obvious deformities. Right leg appears to be shorter than the left leg on physical exam. Right lower extremity supple and nontender. 2+ radial pulses and sensory intact without erythema or edema. BACK: No point tenderness on palpation of the lumbar spine. No reproducible tenderness on palpation to the right iliosacral area. NEUROLOGICAL: Awake and alert. Oriented 3. No obvious cranial nerve deficits. Motor grossly within normal limits. Normal speech. PSYCHIATRIC: Appropriate mood and affect; insight and judgment normal. Data Data Last Documented VS Vital Signs Date Time Temp Pulse Resp B/P Pulse Ox O2 Delivery O2 Flow Rate FiO2 09/17/16 17:53 98.0 69 18 157/73 99 Room Air Orders Hip, Uni(Ap&Lat) W Ap Pelvis (09/17/16 18:16) Us Leg Venous Doppler (09/17/16 ) Ketorolac Inj (Toradol Inj) (09/17/16 18:30) MDM Medical Decision Making Medical Screen Exam Complete: Yes Emergency Medical Condition: Yes Medical Record Reviewed: Yes Differential Diagnosis DVT, leg cramps, bursitis, hip fracture Narrative Course 61-year-old female with right leg pain and inability to bear weight per the patient. Denies injury. The patient is unable to perform active range of motion and refuses to perform passive range of motion on physical exam. The right lower extremity is supple nontender 2+ pedal pulse and sensory intact. Patient has reproducible tenderness to the posterior aspect of the right knee and to the posterior upper calf. On physical exam and after repositioning the right lower extremity does appear shortened compared to the left. The patient denies hip pain. I will obtain a hip and pelvic x-ray to rule out fracture and an ultrasound to rule out DVT. Right leg ultrasound ordered. Right hip with AP pelvis x-ray ordered. Toradol ordered. 1900: Report given to Raimundo Morrell PA-C at change of shift. See his note for final patient disposition. Renuka Conley [facility] September 17, 2016 18:20
[2016-09-17] MEDS ORDERED: KETOROLAC TROMETHAMINE 60 MG/2 ML (IM) VIAL IM ONE (18:30)
--- NOTE | 2016-09-17 19:00 | RADRPT ---
EXAM DATE/TIME: 09/17/2016 18:36 [facility] COMPARISON: No previous studies available for comparison. INDICATIONS : Right leg pain. MEDICAL HISTORY : Hypertension. Gastroesophageal reflux disease. Hypercholesterolemia. Hyperlipidemia. Sleep apnea. Arthritis. Depression. Anxiety. Measles. SURGICAL HISTORY : Hysterectomy. Left breast biopsy. Dilation and Curettage. Left knee replacement. ENCOUNTER: Initial ACUITY: 2 day PAIN SCORE: 6/10 LOCATION: Right leg. TECHNIQUE: Venous ultrasound of the leg was performed from the inguinal ligament to the proximal calf. Real-taylor e, color Doppler and spectral tracing, compression and augmentation techniques were used. FINDINGS: There is normal compressibility of the deep venous system from the inguinal region to the proximal ca lf. No echogenic clot is seen in the lumen of the common femoral, femoral, popliteal, and posterior tibial veins. There is a normal response of the venous system to proximal and distal augmentation an d respiration. CONCLUSION: No deep venous thrombosis in right leg. Bay Roblero MD on September 17, 2016 at 18:57 Board Certified Radiologist. This report was verified electronically.
--- NOTE | 2016-09-17 19:14 | RADRPT ---
EXAM DATE/TIME: 09/17/2016 18:53 [facility] COMPARISON: No previous studies available for comparison. INDICATIONS : Right hip pain, denies injury MEDICAL HISTORY : Hypertension. Gastroesophageal reflux disease. Hypercholesterolemia. Hyperlipidemia. Sleep apnea. Arthritis. Depression. Anxiety. Measles. SURGICAL HISTORY : Hysterectomy. Left breast biopsy. Dilation and Curettage. Left knee replacement. ENCOUNTER: Initial ACUITY: 2 days PAIN SCORE: 6/10 LOCATION: Right Hip FINDINGS: Examination of the right hip was performed with AP Pelvis. The primary and secondary trabecular darryl radha of the femoral neck is intact. The hip joint is of normal width without significant sclerosis or bony hypertrophy. The acetabulum is grossly intact. CONCLUSION: No acute fracture. Bay Roblero MD on September 17, 2016 at 19:11 Board Certified Radiologist. This report was verified electronically.
[2016-09-17] MEDS ORDERED: PERC5TAB12 PO (19:21)
[2016-09-17] MEDS ORDERED: ONDANSETRON ODT 4 MG TAB PO ONE (19:30)
[2016-09-17] MEDS ORDERED: HYDROmorphone HCL PF 2 MG/ML VIAL IM ONE (19:30)
--- NOTE | 2016-09-17 19:30 | PD ---
Physical Exam Date Seen by Provider: September 17, 2016 Time Seen by Provider: 19:26 Narrative GENERAL: This is a morbidly obese, well-developed patient, in no apparent distress. SKIN: No rashes, ecchymoses or lesions. Warm and dry. HEAD: Atraumatic. Normocephalic. EYES: PERRL, EOMI, no discharge or injection. No scleral icterus. EARS: Clear NOSE: Nasal turbinates appear normal. THROAT: Mucosa pink and moist. Airway patent. NECK: Trachea midline. supple, moves head freely. LUNGS: Clear to auscultation. CV: Regular in rhythm. ABDOMEN: Soft nontender. EXT: No clubbing cyanosis or edema. Examination the right lower extremity reveals pain in the knee. She has limited range of motion due to pain. No joint effusion. No instability. No pain on palpation of the hip, ankle or foot. She has intact gross sensation with good distal pulses. Data Data Last Documented VS Vital Signs Date Time Temp Pulse Resp B/P Pulse Ox O2 Delivery O2 Flow Rate FiO2 09/17/16 17:53 98.0 69 18 157/73 99 Room Air Orders Hip, Uni(Ap&Lat) W Ap Pelvis (09/17/16 18:16) Us Leg Venous Doppler (09/17/16 ) Ketorolac Inj (Toradol Inj) (09/17/16 18:30) Hydromorphone Pf Inj (Dilaudid Pf Inj) (09/17/16 19:30) Ondansetron Odt (Zofran Odt) (09/17/16 19:30) MDM Medical Record Reviewed: Yes Supervised Visit with SONJA: No Differential Diagnosis MDM: High Differential diagnoses: Fracture, sprain, strain, dislocation, contusion, neurovascular injury Narrative Course I was asked to review the patient's ultrasound of the right leg and an x-ray of her hip. Ultrasound is negative for DVT. X-rays negative for fracture. I personally examined this patient. Her pain is originating from her knee. She has known [id number] arthritis. She has declined total knee replacement. She has walked more than usual over last few days at the mall. This is an exacerbation of chronic osteoarthritis of the right knee. Patient states that she has problems and relating. She has a walker at home. She'll be given 2 mg of Dilaudid IM due to her size 4 mg of Zofran. She'll be discharged with Percocet. This is right knee pain, osteoarthritis Diagnosis Primary Impression: Right knee pain Qualified Code: M25.561 - Acute pain of right knee Additional Impression: Osteoarthritis of right knee Qualified Code: M17.11 - Primary osteoarthritis of right knee Patient Instructions: Narcotic given in the ED, General Instructions Additional Instruction: Rest. Elevation. Ice. Continue home meds. Percocet for severe pain. Usual walker. Follow-up with your doctor in the next 2 days for recheck. Return to the ER for emergencies Med/Other Pt SpecificInfo: Prescription(s) given Scripts Oxycodone-Acetaminophen (Percocet)5-325 mg Tab1 Tab PO Q4H PRN (PAIN) #20 TAB Prov:Boby Zheng MD 09/17/16 Disposition: 01 DISCHARGE HOME Condition: Stable Raimundo Boucher September 17, 2016 19:30
== END 2016-09-17 20:18 | disposition home or self-care (01) ==
LOC: NEPK 17:19
DX: M17.11 Unilateral primary osteoarthritis, right knee (principal); I10 Essential (primary) hypertension; E78.00 Pure hypercholesterolemia, unspecified; E66.01 Morbid (severe) obesity due to excess calories; F41.8 Other specified anxiety disorders; G47.30 Sleep apnea, unspecified; Z96.652 Presence of left artificial knee joint
CPT/HCPCS: 73502; 93971; 96372; 99284; J1170; J1885

== ENCOUNTER 2017-06-02 12:45 | Emergency (ER) | payer MEDICARE ==
[~2017-06-02] VITALS: Ht 165.1 cm; Wt 128.0 kg
[~2017-06-02 12:45] MED LIST changes: -DICL75TA PO; -METO100T9 PO; +METO1TAB43 PO; +PERC5TAB12 PO
[2017-06-02 12:49] VITALS: BP 152/69; PULSE 67; RESP 19; TEMP 98; O2SAT 95
[2017-06-02] MEDS ORDERED: POTA10CA PO (15:17)
--- NOTE | 2017-06-02 15:52 | PD ---
HPI Chief Complaint: Cold / Flu Symptoms Time Seen by Provider: 15:37 Travel History International Travel<30 days: No Contact w/Intl Traveler<30days: No Traveled to known affect area: No History of Present Illness HPI 62-year-old female complains of sore throat, coughing congestion and wheezing and shortness of breath and nausea. Patient states the symptoms started a week ago. Patient states that the cough is mild intermittent productive. Patient denies any chest pain. Patient denies any fever chills. Patient complains of body ache. Patient states that he has nausea but no vomiting or diarrhea. Patient states that she has some mild burning sensation around the epigastric area. Patient denies any dysuria or frequency. Patient denies any vaginal discharge or bleeding. Patient has history of reactive airway disease in the past. Patient was using inhaler the past. Patient is a smoker. PFSH Past Medical History Arthritis: Yes Asthma: No Autoimmune Disease: No Blood Disorders: No Anxiety: Yes Depression: Yes Heart Rhythm Problems: No Cancer: No Cardiac Catheterization: No Cardiovascular Problems: Yes High Cholesterol: Yes Chemotherapy: No Chest Pain: No Congestive Heart Failure: No COPD: No Diabetes: No Diminished Hearing: No Endocrine: No GERD: Yes Genitourinary: No Hepatitis: No Hiatal Hernia: No Hypertension: Yes Immune Disorder: No Musculoskeletal: Yes (arthritis) Neurologic: No Psychiatric: Yes (DEPRESSION AND ANXIETY) Reproductive: Yes Respiratory: Yes (sleep apnea uses c-pap) Immunizations Current: Yes Radiation Therapy: No Sleep Apnea: Yes Thyroid Disease: No Tetanus Vaccination: Unknown Influenza Vaccination: No ?: Not Dilation and Curettage (D&C): Yes Past Surgical History Abdominal Surgery: No Cardiac Surgery: No Coronary Artery Bypass Graft: No Ear Surgery: No Endocrine Surgery: No Eye Surgery: No Genitourinary Surgery: No Gynecologic Surgery: Yes (D & C) Hysterectomy: Yes Joint Replacement: Yes (left knee) Oral Surgery: No Thoracic Surgery: No Other Surgery: Yes (neck surgery, left breast surgery, arthroscopic surgery right knee) Social History Alcohol Use: Yes (occ) Tobacco Use: Yes Substance Use: No Allergies-Medications (Allergen,Severity, Reaction): Coded Allergies: diatrizoate meglumine (Unverified Allergy, Severe, SWELLING, 06/02/17) gadobenic acid (Unverified Allergy, Severe, SWELLING, 06/02/17) gadodiamide (Unverified Allergy, Severe, SWELLING, 06/02/17) gadoteridol (Unverified Allergy, Severe, SWELLING, 06/02/17) iodixanol (Unverified Allergy, Severe, SWELLING, 06/02/17) iohexol (Unverified Allergy, Severe, SWELLING, 06/02/17) penicillamine (Unverified Allergy, Severe, SWEELING, 06/02/17) penicillin G (Unverified Allergy, Severe, SWELLING, 06/02/17) shellfish derived (Unverified Allergy, Severe, HIVES, SWELLING, 06/02/17) Reported Meds & Prescriptions Reported Meds & Active Scripts Active Reported Potassium Chloride ER (Potassium Chloride) 10 Meq Cap 10 Meq PO DAILY Zocor (Simvastatin) 40 Mg Tab 40 Mg PO DAILY Metoprolol Succinate ER 24 HR (Metoprolol Succinate) 100 Mg Tab 100 Mg PO DAILY Meclizine (Meclizine HCl) 25 Mg Tab 25 Mg PO DIRECTED PRN Hydrochlorothiazide 25 Mg Tab 25 Mg PO DAILY Lexapro (Escitalopram Oxalate) 20 Mg Tab 20 Mg PO DAILY Review of Systems General / Constitutional: No: Fever Eyes: No: Visual changes HENT: Positive: Sore Throat, No: Headaches Cardiovascular: No: Chest Pain or Discomfort Respiratory: Positive: Cough, Shortness of Breath, Wheezing Gastrointestinal: Positive: Nausea, No: Abdominal Pain Genitourinary: No: Dysuria Musculoskeletal: No: Pain Skin: No Rash Neurologic: No: Weakness Psychiatric: No: Depression Endocrine: No: Polydipsia Hematologic/Lymphatic: No: Easy Bruising Physical Exam Narrative GENERAL: Well-nourished, well-developed patient. SKIN: Focused skin assessment warm/dry. HEAD: Normocephalic. EYES: No scleral icterus. No injection or drainage. TM: Clear. Throat: Nonerythematous. NECK: Supple, trachea midline. No JVD or lymphadenopathy. CARDIOVASCULAR: Regular rate and rhythm without murmurs, gallops, or rubs. RESPIRATORY: Breath sounds equal bilaterally. No accessory muscle use. Patient has mild to moderate expiratory wheezes bilaterally. Few rhonchi at the bases. GASTROINTESTINAL: Abdomen soft, nondistended. Patient has mild tenderness on palpation epigastric area. No rebound tenderness. No mass. MUSCULOSKELETAL: No cyanosis, or edema. BACK: Nontender without obvious deformity. No CVA tenderness. Neurologic exam normal. Data Data Last Documented VS Vital Signs Date Time Temp Pulse Resp B/P (MAP) Pulse Ox O2 Delivery O2 Flow Rate FiO2 06/02/17 12:49 98.0 67 19 152/69 (96) 95 Orders Orders Influenzae A/B Antigen (06/02/17 15:47) Chest, Single Ap (06/02/17 15:47) Sodium Chloride 0.9% Flush (Ns Flush) (06/02/17 16:00) Albuterol-Ipratropium Neb (Duoneb Neb) (06/02/17 16:00) Dexamethasone Inj (Decadron Inj) (06/02/17 16:00) [facility] Medical Decision Making Medical Screen Exam Complete: Yes Emergency Medical Condition: Yes Interpretation(s) Last Impressions Chest X-Ray 06/02/17 1547 Signed Impressions: Service Date/Time: Friday, June 02, 2017 16:15 - CONCLUSION: Mild bibasilar viral or atypical pneumonia versus slight failure. Chinedu Salmon MD 1653 PM. Influenza B antigen positive. Differential Diagnosis Differential diagnosis including viral syndrome, pharyngitis, bronchitis, pneumonia, reactive airway disease, gastritis, gastroenteritis. Narrative Course 62-year-old female with sore throat, coughing, wheezing, shortness of breath and nausea and epigastric abdominal pain. Albuterol with Atrovent unit dose treatment 3. Decadron 8 mg IM. Levaquin 750 mg by mouth given. Diagnosis Primary Impression: Influenza B Additional Impressions: Pneumonitis Reactive airway disease Qualified Codes: J45.21 - Mild intermittent asthma with (acute) exacerbation Patient Instructions: General Instructions Additional Instructions: Use inhaler as directed. Take medication as directed. Follow-up with personal physician. Tylenol or ibuprofen for fever aching pain. Return if worse. Med/Other Pt SpecificInfo: Prescription(s) given Scripts Azithromycin (Zithromax Z-Mervin) 250 Mg Dspk 250 MG PO DIRECTED for Infection, #1 DSPK 0 Refills 500 MG (2 tabs) day 1, then 1 tab days 2-5. Prov: Rufus Shirley MD 06/02/17 Prednisone (Prednisone) 20 Mg Tab 20 MG PO BID, #10 TAB 0 Refills Prov: Rufus Shirley MD 06/02/17 Albuterol 18 GM Inh (Ventolin Hfa 18 GM Inh) 90 Mcg/Act Aer 2 PUFF INH Q4-6H Y for SHORTNESS OF BREATH, #1 INHALER 0 Refills Prov: Rufus Shirley MD 06/02/17 Disposition: 01 DISCHARGE HOME Condition: Stable Rufus Shirley MD Jun 02, 2017 15:52
[2017-06-02] MEDS: RESP: ALBUTEROL 2.5 MG/IPRATROPIUM 0.5 MG NEB (SCH) INH ×2 (16:00→16:09)
[2017-06-02] MEDS ORDERED: SODIUM CHLORIDE 0.9% FLUSH 10 ML FLUSH IVF PRN (16:00)
[2017-06-02] MEDS ORDERED: DEXAMETHASONE SOD PHOS 4 MG/ML VIAL IM ONE (16:00)
--- NOTE | 2017-06-02 16:45 | RADRPT ---
EXAM DATE/TIME: 06/02/2017 16:15 [facility] COMPARISON: No previous studies available for comparison. INDICATIONS : Short of breath. MEDICAL HISTORY : None. SURGICAL HISTORY : None. ENCOUNTER: Initial ACUITY: 1 day PAIN SCORE: 0/10 LOCATION: Bilateral chest FINDINGS: Mild hazy proximal opacity seen at both bases. No large effusion. No pneumothorax. Heart size upper l imits of normal. CONCLUSION: Mild bibasilar viral or atypical pneumonia versus slight failure. Chinedu Salmon MD on June 02, 2017 at 16:42 Board Certified Radiologist. This report was verified electronically.
[2017-06-02] MEDS ORDERED: PRED20 PO (16:58)
[2017-06-02] MEDS ORDERED: VENTAER INH (16:58)
[2017-06-02] MEDS ORDERED: ZITHTAB PO (16:59)
[2017-06-02] MEDS ORDERED: LEVOFLOXACIN 750 MG TAB PO ONE (17:00)
== END 2017-06-02 17:21 | disposition home or self-care (01) ==
LOC: NEPD 12:45
DX: J10.1 Influenza due to other identified influenza virus with other respiratory manifestations (principal); J10.00 Influenza due to other identified influenza virus with unspecified type of pneumonia; J45.21 Mild intermittent asthma with (acute) exacerbation; R11.0 Nausea; I10 Essential (primary) hypertension; E78.00 Pure hypercholesterolemia, unspecified; F17.210 Nicotine dependence, cigarettes, uncomplicated
CPT/HCPCS: 71045; 87804; 94640; 94664; 96372; 99284; J1100